=== PATIENT | male | born 1935 | race Caucasian/White ===

== ENCOUNTER → 2017-08-15 | Outpatient (CLI) | payer MEDICARE ==
[2015-10-06 14:52] VITALS: BMI 27.2
[~2017-08-15] MED LIST: ALFU10TA9 PO; AML5 PO; AMOX1TAB9 PO; ASPI-1471 PO; ASPI81TA86 PO; ASPIRIN PO; AZIT-1 PO; AZIT-18 PO; BISO5 PO; CAR6.25 PO; CARV12.578 PO; CEP500 PO; CHOL10005 PO; CIP500 PO; CIPR-245 PO; FAM20 PO; FINA5TAB67 PO; FLU180SY9 IM; FLU45SYR25 IM ONLY; GLUC-141 PO; GLUC-198 PO; GLUC100026 PO; GLUC500C29 PO; GOLYTE PO; HYDR-2970 PO; IBU600 PO; LEVO750T27 PO; LIS5 PO; LISI-362 PO; LISI5TAB25 PO; LOR5/325 PO; LOVA40TA89 PO; MULT-1335 PO; MULT-820 PO; NIT3 PO; PANT40TA65 PO; PHENA200 PO; PRED FORTE; SUCR1TAB51 PO; SULF-198 PO; SULF1TAB24 PO; TAM4 PO
== END ==
LOC: LAB 10:50
PROVIDERS: ATTEND Urology
DX: C61 Malignant neoplasm of prostate (principal)
CPT/HCPCS: 36415; 84153

== ENCOUNTER → 2017-09-09 | Outpatient (CLI) | payer MEDICARE ==
[2015-10-06 14:52] VITALS: BMI 27.2
--- NOTE | 2017-09-09 11:21 | RADIOLOGY IMAGING REPORT ---
FACILITY: [facility] PATIENT NAME: Too Marcelino : 1935 MR: [id number] V: [id number] EXAM DATE: ORDERING PHYSICIAN: YISEL العراقي TECHNOLOGIST: Location: [facility] - [place] Patient: Too Marcelino : 1935 Visit/Account:[id number] Date of Sevice: 09/09/2017 Exam type: CHEST PA AND LAT History: Chest pain on the right, cough, shortness of breath, previous smoker Comparison: February 27, 2016 and February 20, 2016. Findings: Chronic linear scarring in the lingula again noted. There is no evidence of acute appearing infiltra jarett, pleural effusions or pulmonary edema. No evidence of a pneumothorax or pneumomediastinum.. The re is a tiny round nodular density projecting over the right midlung field not appreciated on the lexy or study The cardiac silhouette is normal in size. IMPRESSION: 1. Small amount of linear scarring in the lingula although no evidence of acute pulmonary infiltrate s There is a subtle small round nodular density projecting over the right midlung field not appreciated on the prior study. Short-term interval follow-up chest or chest CT recommended Report Dictated By: Lindsey Plascencia MD at 09/09/2017 11:13 AM Report E-Signed By: Lindsey Plascencia MD at 09/09/2017 11:16 AM WSN:[email or web address]
== END ==
LOC: RAD 10:10
PROVIDERS: ATTEND Internal Medicine
DX: R91.1 Solitary pulmonary nodule (principal); R91.8 Other nonspecific abnormal finding of lung field
CPT/HCPCS: 71046

== ENCOUNTER → 2017-09-17 | Outpatient (CLI) | payer MEDICARE ==
[2015-10-06 14:52] VITALS: BMI 27.2
[~2017-09-17] MED LIST changes: +FERR-53 PO; +PNEU0.5D3 IM
[2017-09-17 09:21] LABS: PLATELET COUNT, AUTOMATED 224 K/uL (150-450)
[2017-09-17 10:05] LABS: LDL CHOLESTEROL 62 mg/dl
== END ==
LOC: LAB 09:02
PROVIDERS: ATTEND Internal Medicine
DX: K26.9 Duodenal ulcer, unspecified as acute or chronic, without hemorrhage or perforation (principal); Z86.010 Personal history of colon polyps; E78.5 Hyperlipidemia, unspecified; I10 Essential (primary) hypertension; I25.10 Atherosclerotic heart disease of native coronary artery without angina pectoris; C61 Malignant neoplasm of prostate; D64.9 Anemia, unspecified; E55.9 Vitamin D deficiency, unspecified
CPT/HCPCS: 36415; 81001; 82040; 82247; 82306; 82310; 82374; 82435; 82465; 82565; 82728; 82947; 83540; 83550; 83718; 84075; 84132; 84155; 84295; 84443; 84450; 84460; 84478; 84520; 85025

== ENCOUNTER → 2017-09-19 | Outpatient (CLI) | payer MEDICARE ==
[2015-10-06 14:52] VITALS: BMI 27.2
[~2017-09-19] MED LIST changes: -FERR-53 PO
== END ==
LOC: LAB 10:49
PROVIDERS: ATTEND Surgery
DX: L57.0 Actinic keratosis (principal); L85.8 Other specified epidermal thickening
CPT/HCPCS: 88305

== ENCOUNTER → 2017-09-22 | Outpatient (CLI) | payer MEDICARE ==
[2015-10-06 14:52] VITALS: BMI 27.2
[~2017-09-22] MED LIST changes: +IOPAMIDOL 76% 75 ML INFUS BTL 75 ML ONE; +NS 0.9% 20 ML SDV 20 ML ONE
--- NOTE | 2017-09-22 14:59 | RADIOLOGY IMAGING REPORT ---
FACILITY: [facility] PATIENT NAME: Too Marcelino : 1935 MR: [id number] V: [id number] EXAM DATE: ORDERING PHYSICIAN: SELENA CANCHOLA TECHNOLOGIST: Location: [facility] - [place] Patient: Too Marcelino : 1935 Visit/Account:[id number] Date of Sevice: 09/22/2017 CHEST W W/O CONTRAST HISTORY: Pulmonary nodule, abnormal chest x-ray TECHNIQUE: CT chest with and without intravenous contrast. Contiguous helical images was performed f rom the lung apices to below the diaphragm. One of the following dose optimization techniques was utilized in the performance of this exam: Autom ated exposure control; adjustment of the mA and/or kV according to the patient's size; or use of an i terative reconstruction technique. Specific details can be referenced in the facility's radiology C T exam operational policy. CONTRAST: 75 cc of Isovue-370 COMPARISON: Chest x-ray 09/09/2017 FINDINGS: Heart/vessels: Patient appears to have metallic stents in the LAD with some mild calcified coronary atherosclerotic disease. Mediastinum: Small hiatal hernia is noted. Lymph nodes: Negative. Lungs/pleura: 4 mm right lower lobe micronodules noted series 6, image 205. 2 mm pleural-based righ t upper lobe nodules noted image 109. Some linear scarring or atelectasis is noted left lower lobe. Patient has mild central bronchiectasis. Visualized upper abdomen: There is fatty infiltration of liver. Scattered benign hypodensities the liver likely reflect hepatic cysts. 1.1 cm nodule right adrenal gland is likely an adenoma with prec ontrast Hounsfield units of 8. Bones/soft tissues: Degenerative changes are noted. IMPRESSION: 1. 2 pulmonary micronodules in the right lung largest measuring 4 mm. Recommendations for follow-up are provided below. FLE[employer]CH[employer] SOCIETY FOLLOW-UP GUIDELINES FOR NEWLY DETECTED INCIDENTAL NODULES IN PERSONS 35 YEARS OF AGE OR OLDER. *THESE RECOMMENDATIONS DO NOT APPLY TO LUNG CANCER SCREENING, PATIENTS WITH IMMUNOSUPPRESSION , OR PA TIENTS WITH KNOWN PRIMARY MALIGNANCY. MULTIPLE SOLID NODULES If largest nodule size is less than 6 mm: Low risk patient - no follow up needed High risk patient - Optional CT at 12 months. LOW RISK PATIENT: Minimal or absent history of tobacco use and of other known risk factors. HIGH RISK PATIENT: Tobacco use, family history of lung cancer, upper pulmonary lobe location of nodul e, presence of emphysema, pulmonary fibrosis, older age. Eloisa H, Magdalena DP, Meg CHOI, et al. Guidelines for Management of Incidental Pulmonary Nodules Dete cted on CT Images: From the Fleischner Society 2017. Radiology. 2. Mild central bronchiectasis. 3. Small right adrenal adenoma. Report Dictated By: Bulmaro Jones MD at 09/22/2017 2:44 PM Report E-Signed By: Bulmaro Jones MD at 09/22/2017 2:55 PM WSN:GENIE
== END ==
LOC: CT 11:30
PROVIDERS: ATTEND Internal Medicine
DX: R91.8 Other nonspecific abnormal finding of lung field (principal); J47.9 Bronchiectasis, uncomplicated; I25.10 Atherosclerotic heart disease of native coronary artery without angina pectoris; K44.9 Diaphragmatic hernia without obstruction or gangrene; K76.0 Fatty (change of) liver, not elsewhere classified
CPT/HCPCS: 71270; J7050; Q9967

== ENCOUNTER → 2018-03-16 | Outpatient (CLI) | payer MEDICARE ==
[2015-10-06 14:52] VITALS: BMI 27.2
[~2018-03-16] MED LIST changes: +ATOR40TA69 PO; +DIPH0.5D12 IM; +FERR-53 PO; -IOPAMIDOL 76% 75 ML INFUS BTL 75 ML ONE; -NS 0.9% 20 ML SDV 20 ML ONE
[2018-03-16 10:32] LABS: PLATELET COUNT, AUTOMATED 177 K/uL (150-450)
== END ==
LOC: LAB 09:54
PROVIDERS: ATTEND Internal Medicine
DX: E78.5 Hyperlipidemia, unspecified (principal); I25.10 Atherosclerotic heart disease of native coronary artery without angina pectoris; I10 Essential (primary) hypertension; C61 Malignant neoplasm of prostate; R61 Generalized hyperhidrosis
CPT/HCPCS: 36415; 81001; 82040; 82247; 82310; 82374; 82435; 82565; 82728; 82947; 83540; 83550; 84075; 84132; 84153; 84155; 84295; 84443; 84450; 84460; 84520; 85025

== ENCOUNTER → 2018-04-09 | Outpatient (CLI) | payer MEDICARE, OTHER ==
[2015-10-06 14:52] VITALS: BMI 27.2
--- NOTE | 2018-04-10 14:08 | RADIOLOGY IMAGING REPORT ---
FACILITY: [facility] PATIENT NAME: Too Marcelino : 1935 MR: [id number] V: [id number] EXAM DATE: ORDERING PHYSICIAN: SELENA CANCHOLA TECHNOLOGIST: [place] [facility] [place] Marcelino : 1935 Visit/Account:[id number] Date of Sevice: 04/09/2018 DEXA Scan HISTORY: prostate cancer , screening. COMPARISON: . LUMBAR SPINE: The bone mineral density (BMD) measured from L1-L4 correlates with a Z-score 1.3 and a T-score of 1 which is Normal as defined by the World Health Organization. HIP: Bone mineral density (BMD) measured in the Left total hip region correlates with a Z-score -0.9 and a T-score of -1.8 which is osteopenia as defined by the World Health Organization. The corresponding risk of fracture in the hip is increased compared with a young adult reference population. Bone mineral density (BMD) measured in the Femoral Neck region measures 0.716 g/cm2 is in the osteope yarelis range. IMPRESSION: 1. Lumbar spine: Normal bone mineral density. 2. Left Total Hip: Osteopenia. 3. Femoral Neck: Bone Mineral Density measured 0.716 g/cm2 and is in the osteopenia range. The next DEXA scan of this patient should include the following sites: L1-L4 and the left hip. FRAX? WHO Fracture Risk Assessment Tool link: <http://www.shef.ac.uk/FRAX/tool.jsp?locationValue=9> PLEASE NOTE: 1) The World Health Organization defines low BMD as follows: T-score Normal > -1 Osteopenia < -1 and > -2.5 Osteoporosis < -2.5 without fractures Established osteoporosis < -2.5 with fractures 2) In general, you may wish to consider: Diagnosis Treatment Follow-up DEXA Normal BMD Prevention 2-3 years Osteopenia Prevention/therapy 1-2 years Osteoporosis Therapy Yearly 3) Fracture risk estimated from the T-score is more accurate for vertebral fractures (often spontane ous) than for hip fractures. Report Dictated By: Arjun Workman MD at 04/10/2018 2:03 PM Report E-Signed By: Arjun Workman MD at 04/10/2018 2:04 PM WSN:[email or web address]
== END ==
LOC: RAD 07:27
PROVIDERS: ATTEND Physician Assistant Medical
DX: Z13.820 Encounter for screening for osteoporosis (principal); M85.88 Other specified disorders of bone density and structure, other site
CPT/HCPCS: 77080

== ENCOUNTER → 2018-05-08 | Outpatient (CLI) | payer MEDICARE ==
[2015-10-06 14:52] VITALS: BMI 27.2
[~2018-05-08] MED LIST changes: +ALBU8.5H IH; +GUAI120L3 PO
--- NOTE | 2018-05-08 16:05 | RADIOLOGY IMAGING REPORT ---
FACILITY: [facility] PATIENT NAME: Too Marcelino : 1935 MR: [id number] V: [id number] EXAM DATE: ORDERING PHYSICIAN: SAI WOLF TECHNOLOGIST: Location: [facility] [place] Patient: Too Marcelino : 1935 Visit/Account:[id number] Date of Sevice: 05/08/2018 Exam type: CHEST PA AND LAT History: Cough x1 week Comparison: September 09, 2017 Findings: The previously noted small nodular density of the right midlung field is no longer seen. The lungs a re free of consolidation. No evidence of pleural effusions or pulmonary edema. Cardiac silhouette i s normal in size. Mild spondylotic changes of the thoracic spine.. IMPRESSION: 1. No acute cardiopulmonary process is seen Report Dictated By: Lindsey Plascencia MD at 05/08/2018 3:58 PM Report E-Signed By: Lindsey Plascencia MD at 05/08/2018 4:02 PM WSN:[email or web address]
== END ==
LOC: RAD 14:51
PROVIDERS: ATTEND Nurse Practitioner Primary Care
DX: M47.814 Spondylosis without myelopathy or radiculopathy, thoracic region (principal); R05 Cough
CPT/HCPCS: 71046

== ENCOUNTER → 2018-07-17 | Outpatient (CLI) | payer OTHER, MEDICARE ==
[2015-10-06 14:52] VITALS: BMI 27.2
[~2018-07-17] MED LIST changes: +FLU180SY11 IM
== END ==
LOC: LAB 10:40
PROVIDERS: ATTEND Physician Assistant Medical
DX: M81.0 Age-related osteoporosis without current pathological fracture (principal); I25.10 Atherosclerotic heart disease of native coronary artery without angina pectoris; N40.1 Benign prostatic hyperplasia with lower urinary tract symptoms; K31.9 Disease of stomach and duodenum, unspecified; I10 Essential (primary) hypertension; E78.2 Mixed hyperlipidemia; H93.13 Tinnitus, bilateral; H91.93 Unspecified hearing loss, bilateral
CPT/HCPCS: 36415; 82040; 82247; 82306; 82310; 82374; 82435; 82565; 82947; 84075; 84100; 84132; 84155; 84295; 84439; 84443; 84450; 84460; 84520

== ENCOUNTER → 2018-09-17 | Outpatient (CLI) | payer MEDICARE ==
[2015-10-06 14:52] VITALS: BMI 27.2
[2018-09-17 14:27] LABS: LDL CHOLESTEROL 41 mg/dl
--- NOTE | 2018-09-17 14:30 | RADIOLOGY IMAGING REPORT ---
FACILITY: [facility] - [place] PATIENT NAME: Too Marcelino : 1935 MR: [id number] V: [id number] EXAM DATE: ORDERING PHYSICIAN: SELENA CANCHOLA TECHNOLOGIST: Location: [facility] - [place] Patient: Too Marcelino : 1935 Visit/Account:[id number] Date of Sevice: 09/17/2018 CERVICAL SPINE 2 OR 3 VIEW Indication: neck pain Comparison: None. Findings: The vertebral bodies and posterior elements are intact. There is mild disc space narrowing with anterior osteophytes at C3-4, C4-5, C5-6, and C6-7. Alignment is normal. There is mild facet arthropathy at C3-4. IMPRESSION: 1. Multilevel cervical spondylosis. 2. Facet arthropathy C3-4. Report Dictated By: Adrian Avalos at 09/17/2018 2:25 PM Report E-Signed By: Adrian Avalos at 09/17/2018 2:26 PM WSN:[email or web address]
== END ==
LOC: LAB 13:38
PROVIDERS: ATTEND Internal Medicine
DX: E78.5 Hyperlipidemia, unspecified (principal); I25.10 Atherosclerotic heart disease of native coronary artery without angina pectoris; C61 Malignant neoplasm of prostate; M47.892 Other spondylosis, cervical region
CPT/HCPCS: 36415; 72040; 82040; 82247; 82310; 82374; 82435; 82465; 82565; 82947; 83718; 84075; 84132; 84153; 84155; 84295; 84450; 84460; 84478; 84520

== ENCOUNTER 2018-12-16 09:45 | Outpatient (RCR) | payer MEDICARE ==
[2015-10-06 14:52] VITALS: BMI 27.2
--- NOTE | 2018-09-24 19:50 | PT INITIAL EVALUATION ---
MEDICAL DIAGNOSIS: neck pain TREATMENT DIAGNOSIS: same DATE OF ONSET: 07/11/18 SUBJECTIVE: Too Marcelino presents to physical therapy with complaints of neck pain that approximately 2 months ago. He reports that he woke up with the neck pain and thought that it would go away; however, it has not gone away and would like to address it so that the pain can be relieved. He rates his current pain to be 2/10. He reports that his pain is work with bending, turning, and turning while looking down to the R. He reports that he feels a painful popping sensation when turning and looking down. He reports that he had an xray last week that reveled some arthritis but no fractures.. He reports that he would like to get rid of the neck pain so he can get back to doing things around his house. . Pain location is C6-7 central with radiating pain and described as achy and painful popping sensation. Pain scale is 2 on a ten point pain scale. REHAB PROBLEM LIST: Increased Pain Decreased ROM Decreased Strength Decreased Endurance Decreased Function Decreased ADL's PREVIOUS MEDICAL HISTORY: See EMR OCCUPATION: Retired OBJECTIVE: Posture: He demonstrates forward head, increased thoracic kyphosis, and decreased lumbar lordosis along with B rounded shoulders ROM: Cervical AROM: protrusion: NIL with no pain. flexion: minimal restriction with painful end feel. retraction: moderate restriction with pain. extension: major restriction with pain. Lateral flexion R: minimal restriction with pain. L lateral flexion: minimal restriction with pain. R rotation: moderate restriction with pain. L rotation: NIL with pain. Palpation: TTP: C6-7 central with radiating pain to the superior medial portion of his scapulae Sensation: Intact C2-T1 Special Tests: Repeated cervical RET: pain during the movement and centralizing following the movement with less pain. ASSESSMENT: Too will benefit from skilled physical therapy addressing the listed impairments to improve function and QOL. Based on his initial examination, I would classify him with posterior derangement that responds to extension based principles with an excellent prognosis. Short Term Goals 2 weeks: Pt will demonstrate directional preference with neck pain resulting in centralized neck pain to improve function and QOL. 6 week: Pt will demonstrate abolished neck pain and return to prior level of function. Patient's Goals reduce neck pain PLAN: Patient to be seen for Manual Therapy/STM/MET Strengthening/condition Range of Motion Spinal Stabilization Work Hardening/Cond Stretching Neuromuscular Re-ed Closed Chain Program Posture/Body mechanics Home Exercise Program Therapeutic Activities 2x/Week for 6 Weeks If you have any questions, comments, or concerns about this report or plan, please contact me at . Thank you, Phillip Lamb, PT, DPT MTDD
--- NOTE | 2018-12-02 11:43 | PT PLAN OF CARE ---
Physician: Sajan Cerna MD Patient is being seen: 1-2x/week Therapist: Phillip Lamb, PT, DPT Medical Diagnosis: neck pain Treatment Diagnosis: same Date of Onset: 07/11/18 Date of Initial Evaluation: 09/23/18 Date patient was last seen: 12/02/18 Number of treatments: 10 Number of cancellations/No shows: 1 INTERVENTIONS: Manual Therapy/STM/MET Strengthening/condition Range of Motion Spinal Stabilization Work Hardening/Cond Stretching Neuromuscular Re-ed Closed Chain Program Posture/Body mechanics Home Exercise Program Therapeutic Activities GOALS: 2 weeks: Pt will demonstrate directional preference with neck pain resulting in centralized neck pain to improve function and QOL. 6 week: Pt will demonstrate abolished neck pain and return to prior level of function. PATIENT'S GOAL: reduce neck pain Status of Patient's Goals: Progressing Patient Compliance: Good Prognosis: Excellent Reasons for continuing therapy: This is a progress note for Too Marcelino. He reports that over the last day his pain has changed from only hurting when he stretched or movement to hurting with rest. He states that if he moves his neck in certain directions it feels better and other directions it feels worse. He rates it to be 6-7/10. He has finally transitioned from the dysfunctional classification phase to the derangement classification phase; therefore, once, he demonstrates a definite directional preference, his pain will abolish in 2-4 weeks. Today, he appeared to demonstrate a directional preference with flexion as it centralized his neck pain and increased his cervical R rotation. Therefore, I feel his overall prognosis moving forward is excellent and will more than likely be discharged with abolished neck pain in the next 10 sessions or 5 weeks. Posture: He demonstrates forward head, increased thoracic kyphosis, and decreased lumbar lordosis along with B rounded shoulders ROM: Cervical AROM: protrusion: NIL with no pain. flexion: NIL with normal end feel. retraction: minimal restriction with pain. extension: moderate restriction with pain. Lateral flexion R: minimal restriction with pain. L lateral flexion: minimal restriction with pain. R rotation: moderate restriction with pain. L rotation: NIL with pain. Palpation: TTP: C6-7 central with radiating pain to the superior medial portion of his scapulae Special Tests: Repeated cervical RET: pain during the movement and centralizing following the movement with less pain. If you have any questions, please contact me at [phone]. Thank you, Phillip Lamb, PT, DPT MTDD
[~2018-12-16 09:45] MED LIST changes: +AMOX-559 PO; -DIPH0.5D12 IM; +DIPH0.5S2 IM; +FLUT16SP19 NS
== END 2018-12-22 ==
LOC: PT 09:45
PROVIDERS: ATTEND Internal Medicine
DX: M54.2 Cervicalgia (principal)
CPT/HCPCS: 97161

== ENCOUNTER 2019-01-20 10:30 | Outpatient (RCR) | payer MEDICARE ==
[2015-10-06 14:52] VITALS: BMI 27.2
--- NOTE | 2018-12-23 10:33 | PT PLAN OF CARE ---
Physician: Sajan Cerna MD Patient is being seen: 1x/week Therapist: Phillip Lamb, PT, DPT Medical Diagnosis: neck pain Treatment Diagnosis: same Date of Onset: 07/11/18 Date of Initial Evaluation: 09/23/18 Date patient was last seen: 12/23/18 Number of treatments: 13 Number of cancellations/No shows: 0 INTERVENTIONS: Manual Therapy/STM/MET Strengthening/condition Range of Motion Spinal Stabilization Work Hardening/Cond Stretching Neuromuscular Re-ed Closed Chain Program Posture/Body mechanics Home Exercise Program Therapeutic Activities GOALS: 2 weeks: Pt will demonstrate directional preference with neck pain resulting in centralized neck pain to improve function and QOL. 6 week: Pt will demonstrate abolished neck pain and return to prior level of function. PATIENT'S GOAL: reduce neck pain Status of Patient's Goals: Progressing Patient Compliance: Good Prognosis: Excellent Reasons for continuing therapy: This is a progress note for Too Marcelino. He continues to demonstrate a directional preference with his cervical spine along with localized pain. His provisional classification continues to be derangement and he continues to be independent with his specific exercise. He has demonstrated significant improvements with cervical AROM in all directions. He should have abolished neck pain in the next few weeks then be discharged from PT to [facility]. Posture: He demonstrates forward head, increased thoracic kyphosis, and decreased lumbar lordosis along with B rounded shoulders ROM: Cervical AROM: protrusion: NIL with no pain. flexion: NIL with normal end feel. retraction: minimal restriction with pain. extension: minimal restriction with pain. Lateral flexion R: minimal restriction with pain. L lateral flexion: minimal restriction with pain. R rotation: minimal restriction with pain. L rotation: NIL with pain. Palpation: TTP: C6-7 central Special Tests: Repeated cervical flexion: localizing his pain or centralizing his pain If you have any questions, please contact me at [phone]. Thank you, Phillip Lamb, PT, DPT [facility]
--- NOTE | 2019-01-20 10:57 | PT PLAN OF CARE ---
Physician: Sajan Cerna MD Patient is being seen: [g OPPT.PTF] Therapist: Phillip Lamb, PT, DPT Medical Diagnosis: neck pain Treatment Diagnosis: same Date of Onset: 07/11/18 Date of Initial Evaluation: 09/23/18 Date patient was last seen: 01/20/19 Number of treatments: 16 Number of cancellations/No shows: 2 INTERVENTIONS: Manual Therapy/STM/MET Strengthening/condition Range of Motion Spinal Stabilization Work Hardening/Cond Stretching Neuromuscular Re-ed Closed Chain Program Posture/Body mechanics Home Exercise Program Therapeutic Activities GOALS: 2 weeks: Pt will demonstrate directional preference with neck pain resulting in centralized neck pain to improve function and QOL. 6 week: Pt will demonstrate abolished neck pain and return to prior level of function. PATIENT'S GOAL: reduce neck pain Status of Patient's Goals: Progressed but not completed abolished Patient Compliance: Good Prognosis: Excellent Reasons for continuing therapy: This is a discharge note for Too Marcelino. He reports that a few of the exercises felt like it was improving his motion and centralizing his pain, but he states that nothing seems to last longer than a few minutes. He now feels that he has excellent morning without any pain, some pain in the afternoon, and by the evening his pain is gone and he states that the pain does not change with exercise or with out the exercise. He appeared to demonstrate a directional preference; however, he did not demonstrate a lasting change, which places him in the other or non-mechanical category. He was encouraged to continue stretching to maintain his motion and if things became unable to return to his physician for imaging and will be discharged from PT. Posture: He demonstrates forward head, increased thoracic kyphosis, and decreased lumbar lordosis along with B rounded shoulders ROM: Cervical AROM: protrusion: NIL with no pain. flexion: NIL with normal end feel. retraction: minimal restriction with pain. extension: minimal restriction with pain. Lateral flexion R: minimal restriction with pain. L lateral flexion: minimal restriction with pain. R rotation: minimal restriction with pain. L rotation: NIL with pain. Palpation: TTP: C6-7 central If you have any questions, please contact me at [phone]. Thank you, Phillip Lamb, PT, DPT [facility]
== END 2019-01-20 18:00 | disposition home or self-care (01) ==
LOC: PT 10:30
PROVIDERS: ATTEND Internal Medicine
DX: M54.2 Cervicalgia (principal)

== ENCOUNTER → 2019-03-05 | Outpatient (CLI) | payer MEDICARE ==
[2015-10-06 14:52] VITALS: BMI 27.2
[2019-03-05 13:51] LABS: PLATELET COUNT, AUTOMATED 176 K/uL (150-450)
[2019-03-05 14:00] LABS: LDL CHOLESTEROL 42 mg/dl
--- NOTE | 2019-03-05 16:22 | EKG ---
FACILITY: [facility] PATIENT NAME: JOCE TAYLOR : [id number] MR: [id number] V: [id number] EXAM DATE: ORDERING PHYSICIAN: SELENA CANCHOLA TECHNOLOGIST: AUDREY Test Reason : DIZZINESS Blood Pressure : / mmHG Vent. Rate : 065 BPM Atrial Rate : 065 BPM P-R Int : 190 ms QRS Dur : 088 ms QT Int : 410 ms P-R-T Axes : 061 044 056 degrees QTc Int : 426 ms Normal sinus rhythm Nonspecific ST abnormality Abnormal ECG No previous ECGs available Confirmed by SELENA CANCHOLA ([id number]) on 03/09/2019 2:58:15 PM Referred By: Confirmed By:SELENA CANCHOLA
== END ==
LOC: LAB 11:31
PROVIDERS: ATTEND Internal Medicine
DX: I25.10 Atherosclerotic heart disease of native coronary artery without angina pectoris (principal); R42 Dizziness and giddiness; E78.5 Hyperlipidemia, unspecified; I10 Essential (primary) hypertension
CPT/HCPCS: 36415; 82040; 82247; 82310; 82374; 82435; 82465; 82565; 82947; 83718; 84075; 84132; 84153; 84155; 84295; 84443; 84450; 84460; 84478; 84484; 84520; 85025

== ENCOUNTER → 2019-03-08 | Outpatient (CLI) | payer MEDICARE ==
[2015-10-06 14:52] VITALS: BMI 27.2
--- NOTE | 2019-03-09 16:59 | RT HOLTER TEST ---
[place] [facility] [place] JOCE TAYLOR : [id number] MR: [id number] V: [id number] EXAM DATE: ORDERING PHYSICIAN: SELENA CANCHOLA TECHNOLOGIST: RAMIRO Hook-up date: 2019-03-08 11:13:00 Duration: 23:53:00 Test Indications: DIZZINESS Medications: 100913 QRS complexes 1080 Ventricular ectopics which represent 1 % of total QRS comp. 11 Supraventricular ectopics which represent <1 % of total QRS comp. * Paced QRS complexes which represent % of total QRS comp. VENTRICULAR ECTOPY 1068 Isolated 0 Bigeminal Cycles 6 Couplets 0 Runs 0 Beats in Runs * Beats LONGEST at * BPM at :: -- * Beats FASTEST at * BPM at :: -- SUPRAVENTRICULAR ECTOPY 11 Isolated 0 Couplets 0 Runs 0 Beats in Runs * Beats LONGEST at * BPM at :: -- * Beats FASTEST at * BPM at :: -- HEART RATES 39 MIN at 04:29:07 2019-03-09 72 AVG 111 MAX at 15:48:10 2019-03-08 LONGEST RR 2.184 secs at 04:24:13 2019-03-09 S-T LEVELS Channel 1 -12.800 mm MIN at 11:13:00 2019-03-08 -12.800 mm MAX at 11:13:00 2019-03-08 Channel 2 -12.800 mm MIN at 11:13:00 2019-03-08 -12.800 mm MAX at 11:13:00 2019-03-08 Channel 3 -12.800 mm MIN at 11:13:00 2019-03-08 -12.800 mm MAX at 11:13:00 2019-03-08 Sinus rhythm with 2nd degree A-V block (Mobitz II) Premature ventricular complexes Nonspecific T wave abnormality Confirmed by IRLANDA ZAPIEN ([id number]) on 03/09/2019 4:55:22 PM Referred By: Overread By: IRLANDA ZAPIEN
== END ==
LOC: RESP 10:54
PROVIDERS: ATTEND Internal Medicine
DX: I44.1 Atrioventricular block, second degree (principal); R42 Dizziness and giddiness
CPT/HCPCS: 93225; 93226

== ENCOUNTER → 2019-03-17 | Outpatient (CLI) | payer MEDICARE ==
[2015-10-06 14:52] VITALS: BMI 27.2
[~2019-03-17] MED LIST changes: +REGADENOSON 0.4 MG/5 ML SYR ONE
--- NOTE | 2019-03-17 13:11 | RADIOLOGY IMAGING REPORT ---
FACILITY: [facility] PATIENT NAME: Too Marcelino : 1935 MR: [id number] V: [id number] EXAM DATE: ORDERING PHYSICIAN: SELENA CANCHOLA TECHNOLOGIST: Location: [facility] Patient: Too Marcelino : 1935 Visit/Account:[id number] Date of Sevice: 03/17/2019 EXAMINATION: Single isotope SPECT imaging with regadenoson infusion and gated SPECT imaging. DATE OF EXAMINATION: 03/17/2019. DATE OF INTERPRETATION: 03/17/2019. REQUESTING PHYSICIAN: SELENA CANCHOLA. INDICATION: The patient is a -year-old male evaluated for coronary artery disease. PROCEDURE: After informed consent the patient received an intravenous injection of 11.9 mCi of Tc-99 m sestamibi followed at an appropriate time interval by rest imaging. The patient then subsequently received an intravenous infusion of 0.4 mg of regadenoson per protocol without complication. Resting heart rate was 56 bpm with a peak heart rate of 83 bpm. Blood pressure at rest was 136 / 82 and fol lowing infusion was 142 / 85. Baseline EKG demonstrates sinus rhythm with nonspecific ST-T wave sotelo ges. There were no EKG changes of ischemia following infusion. Symptoms were nonspecific. The dora ent then received an intravenous injection of 32.0 mCi of Tc-99m sestamibi followed by stress imaging . RAW DATA: Examination of the summed raw data revealed a good quality study. Increased tracer uptake in the GI system. GI attenuation present. MYOCARDIAL PERFUSION: The tomographic images demonstrate a mild intensity, small sized perfusion def ect in the inferior wall on rest and stress images. This normalizes with prone imaging consistent wit h artifact. No transient ischemic dilation.. GATED IMAGES: The gated images demonstrate LVEF 66%. Normal regional wall motion.. IMPRESSION: 1. Nondiagnostic pharmacologic stress ECG. 2. Normal myocardial perfusion scan. 3. Normal LV systolic function; LVEF 66%. 4. Based on the results of this exam, the patient appears to be at low risk for 1 year future cardiov ascular events. Intermediate long-term risk based on need for pharmacologic stress agent and known un derlying CAD. Report Dictated By: Hans Joseph at 03/17/2019 1:00 PM Report E-Signed By: Hans Joseph at 03/17/2019 1:03 PM WSN:[email or web address]
== END ==
LOC: NUC 01:54
PROVIDERS: ATTEND Internal Medicine
DX: I25.10 Atherosclerotic heart disease of native coronary artery without angina pectoris (principal); R42 Dizziness and giddiness
CPT/HCPCS: 78452; 93017; A9500; J2785